=== PATIENT | female | born 1995 | race Caucasian/White ===

== ENCOUNTER 2019-02-12 21:48 | Emergency (ER) | payer SELFPAY ==
[~2019-02-12] VITALS: Ht 162.6 cm; Wt 145.2 kg
[~2019-02-12 21:48] MED LIST: AMOXICILLIN500 MG PO; CLOVE OIL MC; HYDROCODON-ACE1 EA10 PO; IBUPROFEN400 MG PO; OFLOXACIN5 ML OD; PENICILLIN V P500 MG PO; ULTRAM50 MG PO
== END 2019-02-12 22:14 | disposition home or self-care (01) ==
LOC: ED 21:48
DX: H60.93 Unspecified otitis externa, bilateral (principal)
CPT/HCPCS: 99282

== ENCOUNTER 2021-11-17 00:04 | Inpatient (IN) | payer OTHER ==
[~2021-11-17] VITALS: Ht 162.6 cm; Wt 152.0 kg
--- NOTE | 2021-11-17 12:41 | PR ---
[facility] [address] [facility] [place], [place] [address] Signed Progress Notes IP Datetime Report Generated by CPN: 11/17/2021 12:41 PROGRESS NOTES: [id number] Impression: Normal Progression of Labor; Reassuring Heart Rate Plan: Continue Present Management VITAL SIGNS: [id number] Vital Signs: Reviewed VS Notable Details: severe BP non-severe on repeat EXAM: [id number] Dilatation: 3.0 Effacement: 85 Station: -1 Contractions: irregular, mild MEMBRANES: [id number] Membranes Status: Ruptured Comments: S/p cytotec x 2, AROM clear fluid Contractions more regular and painful, now rating 3-4/10 recheck in 2h for continued progress FETUS A: [id number] FHR Baseline: 135 Variability: Moderate 6-25bpm Accelerations: 15X15 Decelerations: None FHR Category: Category I Presentation: Vertex Comments on Fetus A: No evidence of acidemia FETUS B: [id number] Signing Physician: Owen Connelly DO Copies: ~ *Electronically Signed* 11/17/21 1241 OWEN CONNELLY DO PATIENT NAME: TRACY CARRASCO PROGRESS NOTE DATE OF : [birth year] PHYSICIAN: OWEN CONNELLY DO RPT #: [id number] REPORT IS CONFIDENTIAL AND NOT TO BE RELEASED WITHOUT AUTHORIZATION
--- NOTE | 2021-11-17 18:33 | PR ---
[facility] [address] [facility] [place] [address] Signed Progress Notes IP Datetime Report Generated by CPN: 11/17/2021 18:33 PROGRESS NOTES: [id number] Impression: Reassuring Heart Rate Procedures: Intrauterine Pressure Catheter; Scalp Electrode Plan: Continue Present Management VITAL SIGNS: [id number] Vital Signs: Reviewed VS Notable Details: severe BP non-severe on repeat EXAM: [id number] Dilatation: 4.0 Effacement: 90 Station: -1 Contractions: irregular, mild MEMBRANES: [id number] Membranes Status: Ruptured Comments: S/p cytotec x 2, AROM scant amount clear fluid, Pitocin (low dose), now IUPC/ FSE placed without difficulty. Epidural prn ok. FETUS A: [id number] FHR Baseline: 135 Variability: Moderate 6-25bpm Accelerations: 15X15 Decelerations: None FHR Category: Category I Presentation: Vertex Comments on Fetus A: No evidence of acidemia FETUS B: [id number] Signing Physician: Owen Connelly DO Copies: ~ *Electronically Signed* 11/17/21 183 OWEN CONNELLY DO PATIENT NAME: TRACY CARRASCO PROGRESS NOTE DATE OF : [birth year] PHYSICIAN: OWEN CONNELLY #: [id number] REPORT IS CONFIDENTIAL AND NOT TO BE RELEASED WITHOUT AUTHORIZATION
--- NOTE | 2021-11-18 07:37 | NUR ---
11/18/21 0737 Tuyet Thompson 0610 PT ARRIVED IN PACU AWAKE WITH NO C/O'S. 0615 PT CUSSING AT RN WHILE DOING FUNDAL MASSAGE. EXPLAINED TO PT IMPORTANCE OF FUNDAL MASSAGE WITH NO SUCCESS. 0630 TAP BLOCKS DONE BY ANESTHESIA. 0700 TO FBC. REPORT GIVEN TO RN. SISTER AT BEDSIDE.
--- NOTE | 2021-11-19 06:56 | PR ---
[facility] [address] [place], [place] [address] Signed PP Progress Notes Datetime Report Generated by NAEL: 11/19/2021 06:56 SUBJECTIVE: [id number] Pain: Within Normal Limits Nausea/Vomiting: Denies Flatus: Yes Bowel Movement: No Vital Signs: [id number] Vital Signs: Reviewed Notable Details: Intermittent mildly elevated BP, per RN each time systolic was elevated pt was moving around Cardiovascular: Normal Respiratory: Normal Abdomen/Uterus: Normal Lochia: Normal Extremities: Normal Incision: Normal Progress: Normal Exam Comments: NAD, returning to bed from bathroom No dyspnea/ retractions RRR Abd SNTND, FFBU, Binder in place Incision: dressing removed, c/d/i, maxi pad placed over incision as dressing, instructed pt's sister what to look for. Ext: 1+ pitting edema BL, Neg Benny's BL IMPRESSION/PLAN/PROCEDURES: [id number] Impression: Normal Progression Plan: Discharge Other Procedures: Iron infusion Progress Notes: Pt is a 26 yo POD#1 s/p PLTCS for bradycardia -Baby was transferred immediately to NICU -Pt strongly desires early discharge to be with baby at NICU Anemia: acute blood loss -Hgb 8.8 this am -IV iron infusion prior to discahrge complicated by morbid obesity *Electronically Signed* 11/19/21 0656 OWEN CONNELLY DO PATIENT NAME: TRACY CARRASCO PROGRESS NOTE DATE OF : [birth year] PHYSICIAN: OWEN CONNELLY DO RPT #: [id number] REPORT IS CONFIDENTIAL AND NOT TO BE RELEASED WITHOUT AUTHORIZATION [facility] [address] [place], [place] [address] Signed Discussed intermittent elevated BP overnight, cannot DC until consistently normotensive Signing Physician: Owen Connelly DO Copies: ~ *Electronically Signed* 11/19/21 0656 OWEN CONNELLY DO PATIENT NAME: TRACY CARRASCO PROGRESS NOTE DATE OF : [birth year] PHYSICIAN: OWEN CONNELLY DO RPT #: [id number] REPORT IS CONFIDENTIAL AND NOT TO BE RELEASED WITHOUT AUTHORIZATION
--- NOTE | 2021-11-20 14:09 | PATH ---
[facility] [address] [place], [place] [address] Signed SPECIMEN(S): A PLACENTA SPECIMEN SOURCE: A. PLACENTA CLINICAL HISTORY: Mother's age: 27. OB history: A0. Gestational age: 39 and 1. 's weight: 6 lbs 14 oz. score: 2/2/4. Maternal serologies: Rubella immune, hepatitis screen negative, GBS negative. Specific issues of concern: nikole, distress. FINAL PATHOLOGIC DIAGNOSIS: Placenta, third trimester: - Correa placenta, appropriate weight for stated gestational age of 39 weeks, 1 day. - Umbilical cord: No histopathologic abnormality. - membranes: No histopathologic abnormality. - Placental disc: Chorionic villi with intervillous morphology. NAL:cml:C2NR MICROSCOPIC EXAMINATION: Histologic sections of all submitted blocks are examined by light microscopy. These findings, together with the gross examination, support the pathologic diagnosis. GROSS DESCRIPTION: The specimen, labeled "SG, placenta," is received in formalin and consists of a correa discoid placenta with the following parameters: Umbilical cord: Insertion eccentric, measurement 17.0 x 1.5-1.7 cm; trivascular. Cord coiling index (per 10 cm): Three. Lesions: Rocky's jelly. Membranes: Insertion site: Marginal, tucker/translucent, rupture site unable to determine. Fragmented. Other: Not grossly identified. Chorionic Plate: Normal radiating vascular pattern, blue-purple and shiny. Lesions: Not grossly identified. Other: Not grossly identified. Maternal Surface: Normal cotyledons, fragmented. Lesions: Not grossly identified. Measurement: 20.8 x 18.1 x 3.1 cm. Weight (trimmed): 605 grams. Cut Surface: Maroon and spongy. Lesions: Not grossly identified. Basal plate fibrin measures 0.1 cm in thickness. Other Findings: Not grossly identified. Cassette Summary: PATIENT NAME: TRACY CARRASCO PATHOLOGY DATE OF : [birth year] REPORT #: [id number] PHYSICIAN: KALEB PATHOLOGY PCP: NO PRIMARY CARE PHYSICIAN REPORT IS CONFIDENTIAL AND NOT TO BE RELEASED WITHOUT AUTHORIZATION [facility] [address] [place], [place] [address] Signed (A1) Membranes and umbilical cord (A2) Placenta parenchyma (A3) Placenta parenchyma (A4) Placenta parenchyma AT (under the direct supervision of a pathologist) The Gross Description was prepared using a voice recognition system. The report was reviewed for accuracy; however, sound-alike word errors, addition and/or deletions may occur. If there is any question about this report, please contact Client Services. PERFORMING LABORATORY: The technical component was performed by [employer] [address] (Internal Medicine Nurse Practitioner: Inessa Reynolds MD; CLIA# [id number]). [facility] [place], [address] [address] (CLIA# [id number]). Diagnostician: Deann Mendoza MD Pathologist Electronically Signed 11/20/2021 Copies: ~ PATIENT NAME: TRACY CARRASCO PATHOLOGY DATE OF : [birth year] REPORT #: [id number] PHYSICIAN: KALEB PATHOLOGY PCP: NO PRIMARY CARE PHYSICIAN REPORT IS CONFIDENTIAL AND NOT TO BE RELEASED WITHOUT AUTHORIZATION
== END 2021-11-19 11:10 | disposition home or self-care (01) | DRG 786 ==
LOC: FBC 00:04 → MS 11-18 14:00 → FBC 11-18 14:18
PROVIDERS: ADMIT Obstetrics & Gynecology; ATTEND Obstetrics & Gynecology
PROC: 10D00Z1 Extraction of Products of Conception, Low, Open Approach (ICD-10-PCS; principal; 2021-11-18 05:43)
DX: O36.8330 Maternal care for abnormalities of the fetal heart rate or rhythm, third trimester, not applicable or unspecified (principal); O45.93 Premature separation of placenta, unspecified, third trimester; D62 Acute posthemorrhagic anemia; O72.1 Other immediate postpartum hemorrhage; Z3A.39 39 weeks gestation of pregnancy; Z37.0 Single live birth; O99.213 Obesity complicating pregnancy, third trimester; E66.01 Morbid (severe) obesity due to excess calories; O99.02 Anemia complicating childbirth
CPT/HCPCS: 01961; 36415; 64488; 76942; 80053; 82570; 82803; 83615; 84156; 84550; 85025; 85027; 85384; 85610; 85730; 86850; 86900; 86901; 88307; A9270; J0456; J0690; J1100; J1650; J2001; J2250; J2274; J2405; J2590; J2704; J2795; J3010; J3105; J7121; Q0138